=== PATIENT | male | born 1945 | race Caucasian/White ===

== ENCOUNTER → 2024-11-17 | Day surgery (SDC) | payer MEDICARE ==
[~2024-11-17] MED LIST: ACETAMINOPHEN 1000 MG/100 ML 100 ML IV ONE; ACIDOPHILUS1 EAC1 PO; ALBUTEROL0.63 MG/3 NEB; ARICEPT10 MG PO; ASCORBIC ACID500 M2 PO; BREO ELLIPTA 11 EACH INH; CALCIUM CARBON500 MG PO; CETIRIZINE HCL10 M1; CHOLECALCIFEROL1 GM; ELIQUIS5 MG PO; EPHEDRINE SULFATE INJ 50 MG/ML VIAL ONE; FAMOTIDINE20 MG PO; FENTANYL CITRATE/PF 100MCG/2 ML INJ ONE; FEROSUL325 MG PO; FUROSEMIDE40 MG PO; GLUCAGON EMERGEN1 MG; IMODIUM A-1 MG/7.5 M PO; KAOPECTATE525 MG/15; LAC-HYDRIN FIV226 GM TOP; LIDOCAINE HCL 2% LOCAL INJ 5 ML SDV VIAL INJ ONE; METOCLOPRAMIDE HCL 10 MG/2ML VIAL ONE; METOPROLOL TART25 MG PO; MIRALAX17 GM PO; MONTELUKAST SOD10 MG PO; MULTI-VITAMIN1 EACH PO; NEURONTIN300 MG PO; ONDANSETRON HCL INJ 2MG/ML 2ML 2 MG/ML VIAL ONE; ONDANSETRON ODT8 MG PO; POTASSIUM CHLO20 ME1 PO; PROPOFOL IV EMULSION 10 MG/ML 20 ML VIAL ONE; ROBITUSSIN COU118 M4 PO; SPIRIVA18 MCG INH; TRAZODONE HCL50 MG PO; TRIAMCINOLONE A15 G1 TOP; TYLENOL325 MG PO; ULTRAM 50MG50 MG PO; ZINC
[2024-11-17] MEDS: LACTATED RINGER'S 1,000 ML ONE (14:08)
[2024-11-17 14:16] LABS: BASOPHILS # (AUTO) 0.1 (0.0-0.1); BASOPHILS % 1.3 % (0.0-1.0); EOSINOPHILS # (AUTO) 0.4 (0.0-0.4); EOSINOPHILS % 5.4 % (0.0-6.0); HEMATOCRIT 37.1 % (38.2-49.6); HEMOGLOBIN 10.5 g/dL (14.0-18.0); LYMPHOCYTES # (AUTO) 1.2 (1.0-3.2); LYMPHOCYTES % 15.6 % (18.0-39.1); MEAN CORPUSCULAR HEMOGLOBIN 22.5 pg (28-32); MEAN CORPUSCULAR HGB CONC 28.3 g/dL (31-35); MEAN CORPUSCULAR VOLUME 79.6 fL (81-99); MONOCYTES # (AUTO) 0.5 (0.2-0.8); NEUTROPHILS # (AUTO) 5.4 (2.1-6.9); NEUTROPHILS % 70.4 % (38.7-80.0); PLATELET COUNT 202 x10e3/uL (140-360); RED BLOOD COUNT 4.66 x10e6/uL (4.3-5.7); RED CELL DISTRIBUTION WIDTH 17.2 % (11.7-14.4); WHITE BLOOD COUNT 7.71 x10e3/uL (4.8-10.8)
[2024-11-17] MEDS: GENTAMICIN 80MG/NS 100 ML 200 ML IV ONE (14:20)
[2024-11-17 14:25] LABS: ANION GAP 12.7 mmol/L (8-16); CALCIUM 8.9 mg/dL (8.4-10.2); CREATININE, SERUM 1.07 mg/dL (0.72-1.25); POTASSIUM 3.7 mmol/L (3.5-5.1)
[2024-11-17 15:41] VITALS: TEMP 97.2
[2024-11-17 16:55] VITALS: BP 118/56; PULSE 81; RESP 18; O2SAT 99
== END | disposition home or self-care (01) ==
LOC: OR 11:48
PROVIDERS: ATTEND Urology
DX: N39.0 Urinary tract infection, site not specified (principal); R33.8 Other retention of urine; Q54.8 Other hypospadias; N40.0 Benign prostatic hyperplasia without lower urinary tract symptoms; N32.89 Other specified disorders of bladder; N31.2 Flaccid neuropathic bladder, not elsewhere classified; N40.1 Benign prostatic hyperplasia with lower urinary tract symptoms; R39.14 Feeling of incomplete bladder emptying; D64.9 Anemia, unspecified; E11.9 Type 2 diabetes mellitus without complications; I10 Essential (primary) hypertension; J44.9 Chronic obstructive pulmonary disease, unspecified; E66.01 Morbid (severe) obesity due to excess calories; K21.9 Gastro-esophageal reflux disease without esophagitis; F03.90 Unspecified dementia, unspecified severity, without behavioral disturbance, psychotic disturbance, mood disturbance, and anxiety; F32.A Depression, unspecified; Z99.81 Dependence on supplemental oxygen; Z79.02 Long term (current) use of antithrombotics/antiplatelets; Z79.899 Other long term (current) drug therapy
CPT/HCPCS: 36415; 51040; 52005; 71046; 74420; 80048; 85025; 87086; 87186; 93005; J0131; J1580; J2003; J2405; J2704; J2765; J3010; J7121

== ENCOUNTER 2025-04-06 12:45 | Emergency (ER) | payer MEDICARE ==
[~2025-04-06] VITALS: Ht 177.8 cm; Wt 86.2 kg
[~2025-04-06 12:45] MED LIST changes: -ACETAMINOPHEN 1000 MG/100 ML 100 ML IV ONE; -EPHEDRINE SULFATE INJ 50 MG/ML VIAL ONE; -FENTANYL CITRATE/PF 100MCG/2 ML INJ ONE; -LIDOCAINE HCL 2% LOCAL INJ 5 ML SDV VIAL INJ ONE; -METOCLOPRAMIDE HCL 10 MG/2ML VIAL ONE; -ONDANSETRON HCL INJ 2MG/ML 2ML 2 MG/ML VIAL ONE; -PROPOFOL IV EMULSION 10 MG/ML 20 ML VIAL ONE
[2025-04-06 12:48] VITALS: TEMP 97.9
[2025-04-06] MEDS ORDERED: SODIUM CHLORIDE 0.9% 500ML 500 ML ONE ×2 (13:25→16:57)
[2025-04-06] MEDS ORDERED: IOPAMIDOL 370 MG/ML 100 ML INFUS..BTL INJ ONE ×2 (13:25→16:57)
[2025-04-07 00:27] VITALS: PULSE 64; RESP 18
[2025-04-07 02:42] VITALS: BP 103/72; PULSE 62; RESP 17; TEMP 98; O2SAT 98
== END 2025-04-07 01:11 ==
LOC: ER 12:51
DX: T83.89XA Other specified complication of genitourinary prosthetic devices, implants and grafts, initial encounter (principal); K56.41 Fecal impaction; I10 Essential (primary) hypertension; J44.9 Chronic obstructive pulmonary disease, unspecified; G82.50 Quadriplegia, unspecified
CPT/HCPCS: 72194; 99284; J7040; Q9967